=== PATIENT | male | born 1975 | race African-American/Black ===

== ENCOUNTER 2023-10-30 14:19 | Inpatient (IN) | payer OTHER ==
[2023-10-30 14:55] VITALS: BMI 30.4
[2023-10-30] MEDS ORDERED: ONDANSETRON *ODT* 4 MG TABLET SL PRN (16:04)
[2023-10-30] MEDS ORDERED: BENZOCAINE/MENTHOL (CHLORASEPTIC ) LOZENGE MM PRN (16:04)
[2023-10-30] MEDS ORDERED: DICYCLOMINE HCL 10 MG CAPSULE PO PRN (16:04)
[2023-10-30] MEDS ORDERED: MAGNESIUM HYDROX 2400MG/30ML ORAL SUSPENSION 30 ML CUP PO PRN (16:04)
[2023-10-30] MEDS ORDERED: ACETAMINOPHEN 325 MG TABLET (FP) PO PRN (16:04)
[2023-10-30] MEDS ORDERED: NALOXONE (NARCAN) HCL 4 MG/0.1 ML SPRAY NS PRN (16:04)
[2023-10-30] MEDS ORDERED: POLYETHYLENE GLYCOL (HEALTHYLAX) 3350 17 GM PACKET PO PRN (16:04)
[2023-10-30] MEDS ORDERED: guaiFENesin 600 MG TABLET.ER (FP) PO PRN (16:04)
[2023-10-30] MEDS ORDERED: BENZONATATE 200 MG CAPSULE PO PRN (16:04)
[2023-10-30] MEDS ORDERED: LOPERAMIDE HCL 2 MG CAPSULE PO PRN (16:04)
[2023-10-30] MEDS ORDERED: NALOXONE HCL 0.4 MG/ML VIAL IM PRN (16:04)
[2023-10-30] MEDS ORDERED: BISMUTH SUBSALICYLATE 524 MG/30 ML PO PRN (16:04)
[2023-10-30] MEDS ORDERED: NICOTINE POLACRILEX 2 MG LOZENGE BC PRN (16:04)
[2023-10-30] MEDS: PRENATAL VITAMINS W/ FOLIC ACID TABLET (FP) PO SCH (17:47)
[2023-10-30] MEDS: diazePAM 5 MG TABLET PO PRN (17:47)
[2023-10-30] MEDS: NICOTINE 14 MG/24 HOURS TOPICAL PATCH TD SCH (18:00)
[2023-10-30] MEDS: diazePAM 5 MG TABLET PO SCH (18:12)
[2023-10-30] MEDS: MELATONIN 5 MG TABLETS PO SCH (22:44)
[2023-10-30] MEDS: THIAMINE 100 MG TABLET PO SCH (22:45)
[2023-10-30] MEDS: METHOCARBAMOL 500 MG TABLET PO PRN (22:47)
[2023-10-30] MEDS: IBUPROFEN 600 MG TABLET (FP) PO PRN (22:47)
[2023-10-30] MEDS: LISINOPRIL 10 MG TABLET PO ONE (23:48)
[2023-10-31] MEDS: FUROSEMIDE 20 MG TABLET (FP) PO SCH (09:29)
[2023-10-31] MEDS: LISINOPRIL 20 MG TABLET PO SCH (09:29)
[2023-10-31] MEDS: hydrOXYzine PAMOATE 25 MG CAPSULE (FP) PO PRN (09:29)
[2023-10-31] MEDS: NICOTINE POLACRILEX 2 MG GUM BUC PRN (09:29)
[2023-10-31] MEDS: methaDONE HCL 40 MG DISPERSABLE TABLET PO ONE (10:23)
[2023-10-31] MEDS: NICOTINE 21 MG/24 HOURS TOPICAL PATCH TD SCH (10:37)
[2023-10-31 12:02] LABS: HEMOGLOBIN 12.3 GM/dL (11.7-16.9); MCH 30.9 pg (25.7-33.7); MCHC 33.2 g/dl (32.0-35.9); MEAN CELL VOLUME 92.8 fl (80-96); PLATELET COUNT 304 10^3/uL (134-434); RBC 3.99 M/mm3 (4.00-5.60); RDW 14.1 % (11.9-15.9); WHITE BLOOD COUNT 5.2 K/mm3 (4.0-10.0)
[2023-10-31] MEDS: LIDOCAINE 5% TOPICAL PATCH TP SCH (12:29)
[2023-10-31 12:59] LABS: CHLORIDE 102 mmol/L (98-107); POTASSIUM 4.5 mmol/L (3.5-5.1); SODIUM 137 mmol/L (136-145)
[2023-10-31] MEDS: GABAPENTIN 100 MG CAPSULE PO SCH (13:06)
[2023-10-31 13:25] LABS: CALCIUM 9.2 mg/dL (8.5-10.1); GLUCOSE,RANDOM 142 mg/dL (74-106)
[2023-10-31 13:26] LABS: ALBUMIN 3.6 g/dl (3.4-5.0); ANION GAP 8 mmol/L (4-13); BLOOD UREA NITROGEN 24.2 mg/dL (7-18); CO2 27 mmol/L (21-32)
[2023-10-31 13:28] LABS: TOT PROT 7.4 g/dl (6.4-8.2)
[2023-10-31 13:29] LABS: ALK PHOS 180 U/L (45-117); CREATININE 1.1 mg/dL (0.55-1.3); SGOT/AST 28 U/L (15-37); SGPT/ALT 31 U/L (13-61)
[2023-10-31 13:31] LABS: BILIRUBIN,TOTAL 0.3 mg/dL (0.2-1)
[2023-10-31] MEDS: IBUPROFEN 400 MG TABLET (FP) PO PRN (17:18)
[2023-10-31] MEDS: LIDOCAINE PATCH REMOVAL MC SCH (22:10)
[2023-10-31] MEDS: MAG HYDROX/AL HYDROX/SIMETH 30 ML UNIT-DOSE CUP PO PRN (22:41)
[2023-11-01] MEDS: diazePAM 5 MG TABLET PO SCH (05:40)
[2023-11-01] MEDS ORDERED: methaDONE HCL 10 MG TABLET PO SCH (06:00)
[2023-11-01] MEDS: GABAPENTIN 300 MG CAPSULE PO ONE (09:45)
[2023-11-01] MEDS: TIMOLOL 0.25% OPHTHALMIC SOL 5 ML BOTTLE OU SCH (10:29)
[2023-11-01] MEDS: GABAPENTIN 300 MG CAPSULE PO SCH (13:11)
[2023-11-01] MEDS: DOXEPIN HCL 25 MG CAPSULE PO SCH (21:30)
[2023-11-01] MEDS: LATANOPROST 0.005% OPHTH SOLN 2.5ML BOTTLE OU SCH (21:34)
[2023-11-01] MEDS: NICOTINE POLACRILEX 2 MG GUM BC PRN (22:12)
[2023-11-02] MEDS: diazePAM 5 MG TABLET PO SCH (05:30)
[2023-11-03] MEDS: diazePAM 5 MG TABLET PO ONE (05:29)
[2023-11-03 06:07] VITALS: TEMP 98.7
[2023-11-03 08:50] VITALS: BP 138/89; PULSE 102; RESP 18
== END 2023-11-03 11:02 | disposition home or self-care (01) | DRG 773 ==
LOC: YASAS 14:19 → Y6N 16:11
PROVIDERS: ADMIT Allergy & Immunology; ATTEND Surgery
PROC: HZ2ZZZZ Detoxification Services for Substance Abuse Treatment (ICD-10-PCS; principal; 2023-10-30)
DX: F10.230 Alcohol dependence with withdrawal, uncomplicated (principal); F11.20 Opioid dependence, uncomplicated; F17.210 Nicotine dependence, cigarettes, uncomplicated; F10.282 Alcohol dependence with alcohol-induced sleep disorder; G62.9 Polyneuropathy, unspecified; I10 Essential (primary) hypertension; H40.9 Unspecified glaucoma; M17.12 Unilateral primary osteoarthritis, left knee; R73.03 Prediabetes
CPT/HCPCS: 36415; 80053; 80305; 80307; 83036; 85027; 86780; 93005; 93010